=== PATIENT | male | born 1985 | race Caucasian/White ===

== ENCOUNTER 2019-12-15 09:32 | Outpatient (RCR) | payer OTHER, SELFPAY | END 2020-01-11 23:59 | disposition home or self-care (01) | LOC: SOT 09:32 | PROVIDERS: Referring Provider Surgery Surgery of the Hand; Visit Provider Surgery Surgery of the Hand | DX: S68.119D Complete traumatic metacarpophalangeal amputation of unspecified finger, subsequent encounter (principal); X58.XXXD Exposure to other specified factors, subsequent encounter | CPT/HCPCS: 97110; 97140; 97167 ==

== ENCOUNTER 2020-01-12 06:00 | Outpatient (RCR) | payer OTHER, SELFPAY | END 2020-02-11 23:59 | disposition home or self-care (01) | LOC: SOT 06:00 | PROVIDERS: Referring Provider Surgery Surgery of the Hand; Visit Provider Surgery Surgery of the Hand | DX: S68.119D Complete traumatic metacarpophalangeal amputation of unspecified finger, subsequent encounter (principal) | CPT/HCPCS: 97035; 97110; 97140 ==

== ENCOUNTER 2020-02-12 06:00 | Outpatient (RCR) | payer OTHER, SELFPAY | END 2020-02-28 23:00 | disposition home or self-care (01) | LOC: SOT 06:00 | PROVIDERS: Referring Provider Surgery Surgery of the Hand; Visit Provider Surgery Surgery of the Hand | DX: S68.119D Complete traumatic metacarpophalangeal amputation of unspecified finger, subsequent encounter (principal) | CPT/HCPCS: 97035; 97110; 97140 ==

== ENCOUNTER 2020-03-15 14:36 | Outpatient (CLI) | payer OTHER, SELFPAY ==
--- NOTE | 2020-03-15 14:43 | XRR_ITS ---
PROCEDURE INFORMATION: Exam: XR Right Hand Exam date and time: 03/15/2020 3:09 PM Age: 34 years old Clinical indication: Condition or disease; Prior surgery; Surgery date: <1 month; Surgery type: External fixator application. 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 Views: 3 or more views. COMPARISON: No relevant prior studies available. FINDINGS: Bones/joints: There is amputation of all fingers. The index finger shows amputation at the level of the proximal shaft of the 2nd metacarpal. The 5th metacarpal shows a bone defect in the midshaft. External fixators are in place proximal and distal to the bone defect. Soft tissues: Severe soft tissue edema is seen in the dorsal aspect of the hand. Multiple metallic surgical clips seen in the dorsal aspect of the hand. Other findings: The thumb does not show acute abnormality. XR/XR hand RT min 3V* [id number] IMPRESSION: 1. Amputation of the fingers. 2. Amputation of the 2nd metacarpal at the level of the proximal shaft 3. Large bone defect mid shaft 5th metacarpal with placement of external fixator . 4. Severe edema dorsal aspect of the hand new lines 5. Multiple metallic surgical clips dorsal aspect of the hand.
== END 2020-03-15 14:37 | disposition home or self-care (01) ==
LOC: RAD 14:38
PROVIDERS: Visit Provider Surgery Surgery of the Hand
DX: S68.119A Complete traumatic metacarpophalangeal amputation of unspecified finger, initial encounter (principal); R60.0 Localized edema; X58.XXXA Exposure to other specified factors, initial encounter
CPT/HCPCS: 73130

== ENCOUNTER 2020-03-24 16:06 | Emergency (ER) | payer SELFPAY ==
[2020-03-24 17:59] VITALS: BP 111/71; PULSE 92; RESP 14; TEMP 36.6; O2SAT 98; BMI 22.5
--- NOTE | 2020-03-24 18:18 | W.ED.FEVER ---
HPI - Fever General: Chief Complaint: Fever Stated Complaint: covid symptoms Time Seen by Provider: 03/24/20 18:06 Source: patient Mode of arrival: ambulatory Limitations: no limitations History of Present Illness: HPI Narrative: Patient comes in with fever and sinus drainage for the last 3 days. Patient states that he has been and has been in and out of hospitals for treatment of a injury to the right hand with the loss of 4 digits. Patient denies any problems with his surgery or his hand at this time. Patient appears well at this time. Patient has to get COVID screened due to his symptoms in order to continue with the care of his hand. Associated symptoms: Reports nasal congestion Review of Systems General: Reports: 10 or more systems reviewed and unremarkable except in HPI and below Const: Reports: fever(s) ENMT: Reports: nasal congestion Physical Exam Const: COMMON NORMALS: no acute distress and patient oriented x3 GENERAL APPEARANCE: cooperative HENMT: COMMON NORMALS: normocephalic and TM's normal bilaterally HEAD & SCALP: normal to inspection and normocephalic NOSE: Abnormal mucous membranes and turbinates present erythematous and Nasal discharge present TYMPANIC MEMBRANE: TM's normal bilaterally MOUTH: Normal oral and palatal mucosa present THROAT: posterior oropharynx normal Eye: GENERAL EYE: appearance normal, both eyes and all related structures Neck/C-Spine: COMMON NORMALS: full ROM Lymph: LYMPHATIC: no lymphadenopathy noted Chest: COMMONS NORMALS: normal inspection of the chest Resp: COMMON NORMALS: normal respiratory effort EFFORT & INSPECTION: Yes able to speak in complete sentences Cardio: COMMON NORMALS: regular rate and regular rhythm RATE: regular rate RHYTHM: regular rhythm GI: COMMON NORMALS: non-tender Back/Pelvis: COMMON NORMALS: thoracic and lumbar spine normal to inspection Extremity: COMMON NORMALS: normal to inspection Neuro: COMMON NORMALS: patient oriented x3 and moves all extremities Psych: COMMON NORMALS: mental status grossly normal and cooperative Skin: COMMON NORMALS: no rashes or lesions noted GENERAL SKIN EXAM: no rashes or lesions noted Course Vital Signs: Vital signs: Vital Signs Temperature 97.9 F 03/24/20 17:59 Pulse Rate 92 03/24/20 17:59 Respiratory Rate 14 03/24/20 17:59 Blood Pressure 111/71 03/24/20 17:59 Pulse Oximetry 98 03/24/20 17:59 MDM - Fever MDM Narrative: Medical decision making narrative: Patient comes in today for evaluation of upper respiratory infection. Patient reports illness started about 3 days ago. Patient states that he feels no worse than what it was when in illness started. Patient does report an occasional fever. Patient does have a lot of sinus congestion and drainage. Posterior pharynx is clear. Respirations are even lungs are clear to auscultation. Bilateral tympanic membranes are normal. Patient has nasal drainage in bilateral naris. Differential diagnosis includes but not limited to allergic rhinitis, upper respiratory infection, exposure to COVID-19. COVID-19 screening was performed and sent to [facility]. Patient was recommended to continue with quarantine until results. Patient reports understanding of care plan and need for follow-up. Discharge Plan Discharge Patient Disposition: Home Clinical Impression: URI (upper respiratory infection) Qualifiers: URI type: unspecified viral URI Qualified Code(s): J06.9 - Acute upper respiratory infection, unspecified Condition: Stable Discharge Orders: Discharge Order (Routine); Ordered 03/24/20 Ordered By: Gordo Castro Discharge Diet: Usual diet Discharge Activity: Increase activity as tolerated Patient Instructions: Upper Respiratory Infection (ED) Activity Restrictions/Additional Instructions: Drink plenty of fluids. Healthy diet and exercise. Use acetaminophen and ibuprofen for discomfort or fever. You can use [id number] cold medication as needed for symptom control. Is important to stay well-hydrated. Return to the emergency department for increased shortness of breath, chest pain, or new concerns. Follow-up with primary care as needed. You should maintain quarantine of self for 10 days after start of symptoms and as long as fever free for 24 hours at the end of the 10 days. COVID screen will take 2 to 3 days for results. Coding Level of Care Code ED [employer] for April Fwd Exam Comprehensive
[2020-03-27 15:13] LABS: Quest SARS-CoV-2 RNA NOT DETECTED (NOT DETECTED)
== END 2020-03-24 18:37 | disposition home or self-care (01) ==
PROVIDERS: Emergency Provider Nurse Practitioner Family
DX: J06.9 Acute upper respiratory infection, unspecified (principal)
CPT/HCPCS: 12345; 87635; 99281; 99282

== ENCOUNTER 2020-03-28 12:44 | Outpatient (CLI) | payer OTHER, SELFPAY ==
--- NOTE | 2020-03-28 12:53 | XR_ITS ---
WS: [id number] EXAM: RIGHT HAND: 3 VIEWS DATE OF EXAMINATION: 03/28/2020, 1304 hour COMPARISON: Right hand examination from 03/15/2020. HISTORY: Patient is 34 years old with traumatic hand amputation. Follow-up. FINDINGS: Since prior examination external fixator device remains in place for anchoring of the segmented fifth metacarpal bone. No hardware complication is seen. Slight foreshortening of the fourth metacarpal charles ne similar. Third metacarpal bone and base of the remaining second metacarpal bone similar. Thumb is unchanged in appearance. Amputation of second through fifth fingers again noted. 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 There is rotation of the scaphoid bone in relation to the remaining carpal bones with a widened scapholunate distance suggesting disruption of this ligament. Fairly extensive soft tissue swelling is identified. Most prominent dorsally. Extensive surgical clips are seen overlying the wri st mainly dorsally. XR/XR hand RT min 3V* [id number] IMPRESSION: Osteopenia of disuse. Extensive dorsal soft tissue swelling has slightly increa sed since the prior examination. No acute bony abnormality.
== END 2020-03-28 12:45 | disposition home or self-care (01) ==
LOC: RAD 12:46
PROVIDERS: Visit Provider Surgery Surgery of the Hand
DX: S68.119A Complete traumatic metacarpophalangeal amputation of unspecified finger, initial encounter (principal); X58.XXXA Exposure to other specified factors, initial encounter; M85.88 Other specified disorders of bone density and structure, other site
CPT/HCPCS: 73130

== ENCOUNTER 2020-04-10 14:09 | Outpatient (CLI) | payer OTHER, SELFPAY ==
--- NOTE | 2020-04-10 14:16 | XRR_ITS ---
PROCEDURE INFORMATION: Exam: XR Right Hand Exam date and time: 04/10/2020 2:29 PM Age: 34 years old Clinical indication: Condition or disease; Other: Post operative; Prior surgery; Surgery date: 1-6 months; Additional info: Assess healing TECHNIQUE: Imaging protocol: XR Right hand. Views: 3 or more views. COMPARISON: CR XR hand RT min 3V* [id number] 03/28/2020 1:04 PM FINDINGS: Bones/joints: There is been amputation of all fingers. The 2nd metatarsal shows amputation near is proximal shaft. There is a bone defect present in the central shaft of the 5th metacarpal. External fixators are placed proximal and distal to this defect. The thumb does not show abnormalities. Soft tissues: There is a large tissue flap overlying the dorsal aspect of the hand. Multiple metallic surgical clips seen in the dorsal aspect of the hand. Comparison to prior examination similar findings are seen XR/XR hand RT min 3V* [id number] IMPRESSION: 1. There is amputation of all fingers. 2. Amputation of the 2nd metacarpal at the level of the proximal shaft 3. Stable bone defect midshaft 5th metacarpal status post placement of external fixators 4. Large skin flap overlying the dorsal hand. 5. Multiple metallic surgical clips are present in the dorsal aspect of the hand
== END 2020-04-10 14:10 | disposition home or self-care (01) ==
LOC: RAD 14:11
PROVIDERS: Visit Provider Surgery Surgery of the Hand
DX: Z89.021 Acquired absence of right finger(s) (principal)
CPT/HCPCS: 73130

== ENCOUNTER 2020-04-18 12:12 | Outpatient (CLI) | payer OTHER, SELFPAY ==
--- NOTE | 2020-04-18 12:17 | XRR_ITS ---
PROCEDURE INFORMATION: Exam: XR Right Hand Exam date and time: 04/18/2020 12:28 PM Age: 34 years old Clinical indication: Injury or trauma and condition or disease; Other: Traumatic amputation; Amputation, traumatic; Hand; Right; Prior surgery TECHNIQUE: Imaging protocol: XR Right hand. Views: 3 or more views. COMPARISON: XR RIGHT HAND 04/10/2020 2:28 PM FINDINGS: Bones/joints: Prior amputation of 4 fingers, distal 2nd metacarpal, and a segment of the 5th metacarpal. External fixator remains in place at the 5th metacarpal. Soft tissues: Multiple surgical clips present. No changes in the soft tissue in the interval. XR/XR hand RT min 3V* [id number] IMPRESSION: No significant change when compared to XR RIGHT HAND 04/10/2020 2:28 PM.
== END 2020-04-18 12:13 | disposition home or self-care (01) ==
LOC: RAD 12:14
PROVIDERS: Visit Provider Surgery Surgery of the Hand
DX: S68.119A Complete traumatic metacarpophalangeal amputation of unspecified finger, initial encounter (principal); X58.XXXA Exposure to other specified factors, initial encounter
CPT/HCPCS: 73130

== ENCOUNTER 2020-05-01 13:43 | Outpatient (CLI) | payer OTHER, SELFPAY ==
--- NOTE | 2020-05-01 13:46 | XRR_ITS ---
PROCEDURE INFORMATION: Exam: XR Right Hand Exam date and time: 05/01/2020 1:53 PM Age: 34 years old Clinical indication: Injury or trauma; Other: Traumatic amputation; Amputation, traumatic; Hand; Right; Prior surgery; Additional info: Traumatic amputation of finger of right hand, assess healing TECHNIQUE: Imaging protocol: XR Right hand. Views: 3 or more views. COMPARISON: CR XR hand RT min 3V* [id number] 04/18/2020 12:22 PM FINDINGS: Bones/joints: There has been amputation of the fingers of the right hand. There is resection of the 2nd metacarpal at the level of the proximal shaft with a similar resection of midshaft 5th metacarpal . There is external fixator maintaining the proximal and distal aspect of the 5th metacarpal in position. The thumb does not show acute abnormalities. Soft tissues: Prominent soft tissues are seen in the dorsal aspect of the hand. Metallic surgical clips seen in the proximal dorsal aspect of the hand Comparison to prior examination similar findings is seen XR/XR hand RT min 3V* [id number] IMPRESSION: 1. Amputation of the fingers. 2. Resection of the midshaft 5th metacarpal. 3. Resection of the 2nd metacarpal at the level of the proximal shaft. 4. Large soft tissue flap dorsal hand. 5. Multiple metallic surgical clips proximal dorsal hand
== END 2020-05-01 13:44 | disposition home or self-care (01) ==
LOC: RAD 13:44
PROVIDERS: Visit Provider Surgery Surgery of the Hand
DX: Z89.021 Acquired absence of right finger(s) (principal); M79.89 Other specified soft tissue disorders
CPT/HCPCS: 73130

== ENCOUNTER 2020-05-09 13:04 | Outpatient (CLI) | payer OTHER, SELFPAY ==
--- NOTE | 2020-05-09 | XR_ITS ---
WS: [id number] Exam: XR hand RT min 3V* [id number] Date/Time of Exam: 05/09/2020 1:17 PM Comparison 05/01/2020. There is been amputation of the second through the fifth fingers. There has also been amputation of t he second metacarpal at the level of the proximal one third. An external fixator maintains the proxim al and distal segments of the fifth metacarpal in alignment without positional change. The thumb santosh ins intact. There are numerous surgical clips in the hand. Again noted is prominent soft tissue flap over the dorsum of the hand unchanged in appearance. XR/XR hand RT min 3V* [id number] IMPRESSION: 1. Postsurgical changes of the hand as noted above. 2. External fixator stabilizing the proximal and distal fifth metacarpal withou t positional change. 3. Prominent skin flap over the dorsum of the hand. Overall, no significant matthew nge since prior study.
== END 2020-05-09 13:05 | disposition home or self-care (01) ==
LOC: RAD 13:06
PROVIDERS: Visit Provider Surgery Surgery of the Hand
DX: Z89.021 Acquired absence of right finger(s) (principal)
CPT/HCPCS: 73130

== ENCOUNTER 2020-05-29 11:49 | Outpatient (CLI) | payer OTHER, SELFPAY ==
--- NOTE | 2020-05-29 11:54 | XRR_ITS ---
PROCEDURE INFORMATION: Exam: XR Right Hand Exam date and time: 05/29/2020 11:58 AM Age: 34 years old Clinical indication: Condition or disease; Other: Traumatic amputation of fingerof right hand; Prior surgery TECHNIQUE: Imaging protocol: XR Right hand. Views: 3 or more views. COMPARISON: CR XR hand RT min 3V* [id number] 05/09/2020 1:14 PM FINDINGS: Bones/joints: External fixation device in the 5th metacarpal, status post 2nd metacarpal and 3rd and 4th phalangeal amputations. Stable deformity of the mid 5th metacarpal status post resection. Soft tissues: Soft tissue swelling. Multiple surgical clips. XR/XR hand RT min 3V* [id number] IMPRESSION: Postoperative changes, no interval change or acute findings.
== END 2020-05-29 11:50 | disposition home or self-care (01) ==
LOC: RAD 11:51
PROVIDERS: Visit Provider Surgery Surgery of the Hand
DX: S68.119A Complete traumatic metacarpophalangeal amputation of unspecified finger, initial encounter (principal); X58.XXXA Exposure to other specified factors, initial encounter
CPT/HCPCS: 73130

== ENCOUNTER 2020-06-06 14:46 | Outpatient (CLI) | payer OTHER, SELFPAY ==
--- NOTE | 2020-06-06 14:49 | XRR_ITS ---
PROCEDURE INFORMATION: Exam: XR Right Hand Exam date and time: 06/06/2020 2:54 PM Age: 34 years old Clinical indication: Condition or disease; Other: Traumatic amputation of finger on R hand; Prior surgery; Surgery date: 1-6 months TECHNIQUE: Imaging protocol: XR Right hand. Views: 3 or more views. COMPARISON: CR XR hand RT min 3V* [id number] 05/29/2020 12:08 PM FINDINGS: Soft tissues: There is soft tissue skin flap in the dorsal aspect of the hand. Metallic surgical clips are present in the dorsal aspect of the hand Bones and joints. There is amputation of the 2nd through 5th digits. The 2nd digit is amputated at the level of the proximal shaft of the 1st metacarpal. The 5th digit shows a cortical defect between the proximal and distal aspect of the 5th metacarpal this finding is supported by external fixators. The 3rd 4th and 5th fingers have been amputated. No acute bony abnormality is seen. XR/XR hand RT min 3V* [id number] IMPRESSION: 1. There is amputation of the fingers as described. 2. Metallic surgical clips seen in the dorsal aspect of the hand. 3. There is a large skin flap in the dorsal aspect of the hand
== END 2020-06-06 14:47 | disposition home or self-care (01) ==
LOC: RAD 14:47
PROVIDERS: Visit Provider Surgery Surgery of the Hand
DX: Z89.111 Acquired absence of right hand (principal)
CPT/HCPCS: 73130

== ENCOUNTER 2020-06-19 13:22 | Outpatient (CLI) | payer OTHER, SELFPAY ==
--- NOTE | 2020-06-19 13:29 | XR_ITS ---
WS: [id number] XR hand RT min 3V* [id number] REASON FOR EXAM: TRAUMATIC AMPUTATION OF FINGER OF R HAND FINDINGS: The examination is unchanged compared to 06/06/2020. The thumb is intact. There has been osteotomy right index finger distal to the proximal metacarpal, distal to the third me tacarpal, distal to the fourth metacarpal, distal to the fifth metacarpal. Soft tissue distal to the metacarpals has also been removed. Surgical appliance with fixation of 2 fragments of the right fifth metacarpal. Multiple small clips and derek overlying the carpal bones and distally. XR/XR hand RT min 3V* [id number] IMPRESSION: Traumatic amputation of the right hand with extensive postsurgical change as ab ove.
== END 2020-06-19 13:23 | disposition home or self-care (01) ==
PROVIDERS: Visit Provider Surgery Surgery of the Hand
DX: S68.119A Complete traumatic metacarpophalangeal amputation of unspecified finger, initial encounter (principal); Z89.111 Acquired absence of right hand; X58.XXXA Exposure to other specified factors, initial encounter
CPT/HCPCS: 73130

== ENCOUNTER 2020-07-03 14:18 | Outpatient (CLI) | payer OTHER, SELFPAY ==
--- NOTE | 2020-07-03 14:24 | XRR_ITS ---
PROCEDURE INFORMATION: Exam: XR Right Hand Exam date and time: 07/03/2020 2:37 PM Age: 34 years old Clinical indication: Injury or trauma; Other: Assess healing/traumatic amputation of finger of R hand; Amputation, traumatic; Right; Prior surgery TECHNIQUE: Imaging protocol: XR Right hand. Views: 3 or more views. COMPARISON: CR XR hand RT min 3V* [id number] 06/19/2020 1:34 PM FINDINGS: Bones/joints: The exam shows amputation of the fingers. The 1st metacarpal is amputated at the proximal shaft. The 5th metacarpal is resected centrally with external fixation. The 3rd and 4th metacarpal carpal are intact. Soft tissues: A large dorsal skin flap is seen overlying the hand. Metallic surgical clips seen in the area of the thumb and proximal hand. Similar findings are seen compared to prior XR/XR hand RT min 3V* [id number] IMPRESSION: 1. Amputation of the fingers as described. 2. Amputation of the 2nd and 5th metacarpal 3. Skin flap dorsal aspect of the hand 4 stable metallic surgical clips
== END 2020-07-03 14:19 | disposition home or self-care (01) ==
PROVIDERS: Visit Provider Surgery Surgery of the Hand
DX: Z89.021 Acquired absence of right finger(s) (principal)
CPT/HCPCS: 73130

== ENCOUNTER → 2020-08-01 10:50 | Outpatient (BNVA) | payer OTHER, SELFPAY | PROVIDERS: Visit Provider Surgery Surgery of the Hand | DX: Z01.812 Encounter for preprocedural laboratory examination (principal) | CPT/HCPCS: 87426 ==